=== PATIENT | female | born 1965 | race Caucasian/White ===

== ENCOUNTER 2017-10-28 22:07 | Emergency (ER) | payer SELFPAY | END 2017-10-29 00:49 | disposition left against medical advice (07) | LOC: E/R 22:07 | DX: Z53.21 Procedure and treatment not carried out due to patient leaving prior to being seen by health care provider (principal) ==

== ENCOUNTER 2017-10-29 03:32 | Emergency (ER) | payer OTHER | END 2017-10-29 06:46 | disposition home or self-care (01) | LOC: FTE 03:32 | DX: S39.92XA Unspecified injury of lower back, initial encounter (principal); S93.402A Sprain of unspecified ligament of left ankle, initial encounter; J45.909 Unspecified asthma, uncomplicated; E11.9 Type 2 diabetes mellitus without complications; W18.39XA Other fall on same level, initial encounter; Y92.9 Unspecified place or not applicable | CPT/HCPCS: 72100; 73610; 81025; 99284-25 ==